=== PATIENT | female | born 1955 | race Hispanic/Latino ===

== ENCOUNTER 2019-03-18 23:11 | Emergency (ER) | payer MEDICARE, OTHER ==
[2019-03-18] MEDS ORDERED: SODIUM CHLORIDE 0.9% 1000ML 1,000 ML IV ONE (23:44)
[2019-03-18] MEDS ORDERED: KETOROLAC TROMETHAMINE 30MG/ML ONE (23:46)
[2019-03-18] MEDS ORDERED: ORPHENADRINE CITRATE 30 MG/ML ML ONE (23:46)
[2019-03-18 23:52] LABS: BASOPHILS % (AUTO) 0.8 % (0.0-5.0); EOSINOPHILS % (AUTO) 1.7 % (0.0-8.0); HEMATOCRIT 42.2 % (36-48); LYMPHOCYTES % (AUTO) 21.2 % (21.0-51.0); MEAN CORPUSCULAR HEMOGLOBIN 31.3 pg (27.0-33.0); MEAN CORPUSCULAR HGB CONC 33.8 g/dL (32.0-36.0); MEAN CORPUSCULAR VOLUME 92.5 fL (79-99); MONOCYTES % (AUTO) 9.2 % (3.0-13.0); NEUTROPHILS % (AUTO) 67.1 % (40.0-77.0); PLATELET COUNT (AUTO) 265 K/uL (130-400); RED BLOOD CELL COUNT(AUTO) 4.56 MIL/uL (4.00-5.50); RED CELL DISTRIBUTION WIDTH 13.7 % (11.0-15.5); WHITE BLOOD COUNT (AUTO) 10.6 K/uL (4.8-10.8)
[2019-03-19 00:02] LABS: CREATININE 0.7 mg/dL (0.5-1.5); POTASSIUM 3.9 mmol/L (3.5-5.1)
[2019-03-19 00:06] LABS: ALBUMIN 3.6 g/dL (3.5-5.0); BILIRUBIN,TOTAL 0.6 mg/dL (0.2-1.0); INR 0.98 (0.85-1.15); PARTIAL THROMBOPLASTIN TIME 27.5 SEC (26.3-35.5); PROTHROMBIN TIME 10.3 SEC (9.6-11.6)
[2019-03-19 00:15] LABS: B-TYPE NATRIURETIC PEPTIDE 18 pg/mL (0-100)
[2019-03-19] MEDS ORDERED: LIDOCAINE 5% TOPICAL PATCH TP ONE (01:09)
== END 2019-03-19 01:34 | disposition home or self-care (01) ==
LOC: EDH 23:11
DX: M62.830 Muscle spasm of back (principal); M54.2 Cervicalgia; R00.2 Palpitations; Z90.49 Acquired absence of other specified parts of digestive tract; Z90.710 Acquired absence of both cervix and uterus
CPT/HCPCS: 36415; 71045; 80053; 83880; 84484; 85025; 85610; 85730; 93005; 96374; 96375; 99285; J1885; J2360; J7030

== ENCOUNTER 2019-03-26 16:32 | Emergency (ER) | payer MEDICARE, OTHER ==
[2019-03-26] MEDS ORDERED: ASPIRIN 325 MG TABLET ONE (17:16)
[2019-03-26 17:21] LABS: APPEARANCE,URINE Clear (CLEAR); BILIRUBIN,URINE Negative (NEGATIVE); COLOR,URINE Yellow (YELLOW); GLUCOSE, URINE (UA) Negative (NEGATIVE); KETONES,URINE Negative (NEGATIVE); LEUKOCYTE ESTERASE ,URINE Small (NEGATIVE); NITRATE,URINE Negative (NEGATIVE); OCCULT BLOOD,URINE Nonhemolyzed Trace (NEGATIVE); PH,URINE 6.5 (5.0-8.0); PROTEIN,URINE Negative (NEGATIVE)
[2019-03-26 17:35] LABS: BASOPHILS % (AUTO) 0.9 % (0.0-5.0); EOSINOPHILS % (AUTO) 1.4 % (0.0-8.0); HEMATOCRIT 44.8 % (36-48); LYMPHOCYTES % (AUTO) 20.4 % (21.0-51.0); MEAN CORPUSCULAR HEMOGLOBIN 30.6 pg (27.0-33.0); MEAN CORPUSCULAR HGB CONC 33.1 g/dL (32.0-36.0); MEAN CORPUSCULAR VOLUME 92.3 fL (79-99); MONOCYTES % (AUTO) 7.9 % (3.0-13.0); NEUTROPHILS % (AUTO) 69.4 % (40.0-77.0); PLATELET COUNT (AUTO) 318 K/uL (130-400); RED BLOOD CELL COUNT(AUTO) 4.86 MIL/uL (4.00-5.50); RED CELL DISTRIBUTION WIDTH 13.9 % (11.0-15.5); WHITE BLOOD COUNT (AUTO) 10.8 K/uL (4.8-10.8)
[2019-03-26 17:39] LABS: BACTERIA,URINE Few /HPF (None Seen); MUCUS,URINE Few LPF (None Seen)
[2019-03-26 17:43] LABS: CREATININE 0.7 mg/dL (0.5-1.5)
[2019-03-26 17:46] LABS: INR 0.99 (0.85-1.15); PARTIAL THROMBOPLASTIN TIME 26.8 SEC (26.3-35.5); PROTHROMBIN TIME 10.4 SEC (9.6-11.6)
[2019-03-26 17:53] LABS: ALBUMIN 3.8 g/dL (3.5-5.0); BILIRUBIN,TOTAL 0.8 mg/dL (0.2-1.0); TOTAL PROTEIN, SERUM 8.6 g/dL (6.0-8.3)
[2019-03-26] MEDS ORDERED: LIDOCAINE 5% TOPICAL PATCH TP ONE (18:46)
== END 2019-03-26 19:03 | disposition home or self-care (01) ==
LOC: EDH 16:32
DX: N39.0 Urinary tract infection, site not specified (principal); M54.2 Cervicalgia; Z90.710 Acquired absence of both cervix and uterus; Z90.49 Acquired absence of other specified parts of digestive tract
CPT/HCPCS: 36415; 71045; 80053; 81001; 82550; 84484; 85025; 85610; 85730; 93005

== ENCOUNTER 2022-09-13 09:29 | Emergency (ER) | payer MEDICARE ==
[~2022-09-13] VITALS: Ht 154.9 cm; Wt 74.8 kg
[2022-09-13 10:49] LABS: BASOPHILS % (AUTO) 0.4 % (0.0-5.0); EOSINOPHILS % (AUTO) 1.1 % (0.0-8.0); HEMATOCRIT 45.8 % (36-48); LYMPHOCYTES % (AUTO) 17.4 % (21.0-51.0); MEAN CORPUSCULAR HGB CONC 31.9 g/dL (32.0-36.0); NEUTROPHILS % (AUTO) 74.7 % (40.0-77.0); PLATELET COUNT (AUTO) 269 K/uL (130-400); RED BLOOD CELL COUNT(AUTO) 4.87 MIL/uL (4.00-5.50); RED CELL DISTRIBUTION WIDTH 13.6 % (11.0-15.5); WHITE BLOOD COUNT (AUTO) 11.4 K/uL (4.8-10.8)
[2022-09-13] MEDS ORDERED: CYCLOBENZAPRINE HCL 10 MG TABLET PO ONE (11:00)
[2022-09-13] MEDS ORDERED: KETOROLAC 15MG/ML VIAL (15MG/ML) IM ONE (11:00)
[2022-09-13 11:45] VITALS: BP 134/68
[2022-09-13] MEDS ORDERED: LIDO1ADH82 TP (11:51)
[2022-09-13] MEDS ORDERED: CYCL-309 PO (11:51)
[2022-09-13] MEDS ORDERED: KETO10TA2 PO (11:51)
[2022-09-13 12:18] LABS: CREATININE 0.6 mg/dL (0.5-1.5)
[2022-09-13 12:22] LABS: ALBUMIN 3.6 g/dL (3.5-5.0); TOTAL PROTEIN, SERUM 7.9 g/dL (6.0-8.3)
== END 2022-09-13 12:08 | disposition home or self-care (01) ==
LOC: EDH 09:29
DX: M62.838 Other muscle spasm (principal); Z90.49 Acquired absence of other specified parts of digestive tract; Z90.710 Acquired absence of both cervix and uterus
CPT/HCPCS: 99284; 84484; 80053; 85025; 36415; 96372; 93005; J1885